=== PATIENT | female | born 1980 | race Caucasian/White ===

== ENCOUNTER 2023-10-17 17:28 | Emergency (ER) | payer OTHER ==
[~2023-10-17] VITALS: Ht 170.1 cm; Wt 97.5 kg
== END 2023-10-17 21:48 | disposition home or self-care (01) ==
LOC: ED 17:28
DX: S93.402A Sprain of unspecified ligament of left ankle, initial encounter (principal); Z88.8 Allergy status to other drugs, medicaments and biological substances; Z88.1 Allergy status to other antibiotic agents; Z88.5 Allergy status to narcotic agent; W01.0XXA Fall on same level from slipping, tripping and stumbling without subsequent striking against object, initial encounter; Y93.01 Activity, walking, marching and hiking; Y92.89 Other specified places as the place of occurrence of the external cause; Y99.8 Other external cause status

== ENCOUNTER → 2023-10-29 | Outpatient (CLI) | payer OTHER ==
[2023-10-29 16:48] LABS: ALKALINE PHOSPHATASE 45 U/L (46-116); BUN 9 mg/dl (9-23); CHLORIDE 103 mmol/L (98-107); POTASSIUM 4.1 mmol/L (3.4-5.1); SGPT/ALT 13 U/L (5-49); TOTAL PROTEIN 7.8 gm/dL (6.0-8.0); URIC ACID 3.8 mg/dL (3.1-7.8)
[2023-10-29 18:26] LABS: VITAMIN D, 25-HYDROXY 43.8 ng/mL (30-100)
== END | disposition home or self-care (01) ==
LOC: LAB 10:53
PROVIDERS: ATTEND Internal Medicine
DX: E11.9 Type 2 diabetes mellitus without complications (principal); M25.50 Pain in unspecified joint; D64.9 Anemia, unspecified